=== PATIENT | male | born 2000 | race American Indian/Alaskan Native ===

== ENCOUNTER 2022-10-11 04:49 | Emergency (ER) | payer OTHER ==
[2022-10-11] MEDS ORDERED: Cyclobenzaprine 10 MG Tab PO ONE (04:50)
== END 2022-10-11 05:31 | disposition home or self-care (01) ==
LOC: FB.ED 04:49
DX: M43.6 Torticollis (principal); Z88.1 Allergy status to other antibiotic agents
CPT/HCPCS: 99283; A9270